=== PATIENT | male | born 1985 | race Caucasian/White ===

== ENCOUNTER 2016-06-19 10:06 | Emergency (ER) | payer SELFPAY ==
[~2016-06-19] VITALS: Ht 182.9 cm; Wt 125.0 kg
[2016-06-19 10:07] VITALS: BP 163/88; PULSE 75; RESP 18; O2SAT 96
--- NOTE | 2016-06-19 11:03 | ED.REPORT ---
HPI-Dizziness / Weakness Date of Service Jun 19, 2016 ED Provider: Jose Espinoza MD Pt is a 30 y/o male w/ a hx of anxiety presenting to the ED c/o dizziness and lightheadedness onset last week. Last week he was having intermittent episodes every 15 minutes of fast palpitations and lightheadedness which were thought to be caused by anxiety. He was seen at [facility] and subsequently prescribed anxiety medication and since then he has been feeling constant lightheadedness with hot flashes. He reports that his blood sugar and liver enzymes were mildly elevated during that visit. He has also noted left sided chest pain which resolves after a few seconds. He has not experienced any episodes of near-syncope. Family history: CAD in both grandparents with MIs around age 50. Diabetes on mother's side. Nursing Notes Stated Complaint: DIZZY/LIGHT HEADED Chief Complaint: Neuro Symptoms/ Deficits Nursing Notes Reviewed: Yes (OpenStudy, meds not reconciled) Allergies: Coded Allergies: No Known Allergies (Unverified , 06/19/16) General Time Seen by MD: 11:00 Chief Complaint Dizzy, Lightheaded Hx Obtained From: Patient Arrived By: Walk-in Onset Occurred: 1 week ago Symptom Duration: Since onset Location: : Chest Quality: Painful Severity: Current: No pain currently Severity: Maximum: Mild Recent Healthcare: Recent doctor visit Similar Sx Previous: No Past Medical History Past Medical History Asthma Episodic anxiety GERD Past Surgical History Denies Family History CAD in both grandparents, [place] around age 50 Diabetes on mother's side Smoking History Current Every Day Smoker Social History Alcohol Use: "Social" Ambulatory Status Independent Review of Systems Constitutional: Denies: Chills, Fever Cardiovascular: Reports: Palpitations GI: Denies: Abdominal pain, Diarrhea, Nausea, Vomiting Neurologic: Reports: Dizziness, Lightheaded, Denies: Syncope Complete sys rev & neg: except as marked. Physical Exam Initial Vital Signs Vital Signs (First) Date Time Temp Pulse Resp B/P Pulse Ox O2 Delivery O2 Flow Rate FiO2 06/19/16 10:07 36.7 75 18 163/88 96 Room Air Initial VS: Reviewed, Vital signs normal ENT: Mucous membranes moist, Conjunctiva normal, No scleral icterus Neck: Supple, Full range of motion Abdomen / GI: Soft, Non-tender, No guarding, No rebound, No distention Back: No CVA tenderness Lymphatic: No lymphadenopathy Extremities: Vascular intact, Neuro intact, No swelling, No tenderness Skin: Warm, Dry, No cyanosis Psychiatric: Mood/affect normal, Behavior normal, Normal thought content General/Constitutional: Awake, Alert, No acute distress, Well appearing, Well hydrated, Well nourished, Cooperative, Not toxic appearing Appearance / Presentation: Positive: Obese Head / Eyes: Atraumatic, Normocephalic, PERRL, EOMI, No nystagmus, No periorbital redness, No periorbital swelling, No photophobia Respiratory / Chest: Atraumatic, Breath sounds NL, Breath sounds = bilat, No respiratory distress, No rales, No rhonchi, No wheezing, No retractions, No stridor, No chest tenderness, No chest wall deformity, No crepitus Cardiovascular: Heart rate NL, Regular rhythm, Heart sounds NL, No gallop, No murmurs, No rubs, Cap refill not delayed, Peripheral circulation NL Neurologic: Oriented X3, Speech NL, No motor deficits, No sensory deficits, CN II - XII intact, Cerebellar NL, Memory NL Interpretation & Diagnostics Interpretation & Diagnostics: REcords obtained from [facility] ED visit anywhere 2016: EKG normal at that visit, today's EKG is unchanged, blood work was obtained at that visit revealing a normal CBC, CMP was normal except AST just over the top limit at 70, therefore not finding an occasional repeat laboratory testing today. ECG Interpretation ECG Interpretation: Sinus rhythm rate 68 Time: 11:28 Interpreted by: ED physician Normal ECG Interpretation: Normal rate, Normal sinus rhythm, No acute ischemic changes, Normal QRS, Normal axis, Normal intervals, Adequate tracing Re-Eval/Medical Decision Med Decision/Clinical Course This is a 30-year-old male presents with nonspecific dizziness, we just feels fuzzy. He had no syncope or near syncope, no chest pain, no shortness of breath no diaphoresis. He did have trace palpitations a week ago, anxiety, and was seen at [facility]. he had lab tests, EKG, and was ultimately started on Citalopram just a few days ago. His felt fuzzy ever since, it is little bit more severe today while at work. 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 His had no fever, no cough no infectious symptoms, no infectious symptoms of GI bleeding, and no other specific complaints. He has normal vitals. He is not orthostatic. He has no nystagmus or overt findings of vertigo, and does not describe vertiginous sounding symptoms. He has no clinical history or exam findings of an infectious etiology. He has just had a laboratory evaluation-so I obtained records from that ED visit , his labs are normal with exception of an AST of 70 which is nonspecific. An EKG was repeated here and was normal. However I am not finding clinical signs to indicate repeat laboratory testing is likely be beneficial. Given his symptoms started after starting this new medication, and it is a known side effect of the medication, and his physical exam and history do not bleed or direct any red flags for an alternate or more dangerous etiology, I am highly suspicious that his symptoms may be medication induced. The plan at this point is to stop the new medication. Given he is only been on it for a few days, the taper is not required. She was happy and comfortable with this plan. Routine precautions reviewed. Patient is discharged in stable condition. Source of Hx: Old records Re-Evaluation/Progress : Time of Eval: 12:48 Re-Evaluation/Progress Note: Pt rechecked. Discussed today's findings along with evaluation of prior records. Informed pt of plan for treatment. Pt understands and agrees with plan for treatment. F/U and RTER warnings given. All questions addressed. Counseled Regarding: Diagnosis, Need for follow-up, When/why to return to ED Patient Discharge & Departure Impression: Primary Impression: Adverse effects of medication Encounter type: initial encounter Qualified Code: T88.7XXA - Unspecified adverse effect of drug or medicament, initial encounter Disposition: Home Discharge Condition All VS Reviewed: Yes Condition: Stable Additional Instructions: 1. I am very suspicious that your dizziness has been worse and caused by the citalopram that you just started a few days ago. Although in general this is a very good medicine for most people, this week of dizziness is a known side effect of this medication. 2. I recommended stopping the medicine entirely at this point. It is completely safe to simply discontinue the medicine directly, given you have only been on it for several days-he did not require a taper off the medication. 3. Make sure you take it easy the next day or 2. Usually takes a few days for the medication of Pena or system, and for symptoms to fully resolve. 4. Activities as tolerated. 5. Make sure you are drinking plenty of liquids. 6. Return if new or worsening symptoms are occurring. 7. If you need a primary care provider in the [place] area, you can follow-up with the [facility] residency clinic Referrals: [facility] Residency [facility] Scribe Attestation Portions of this note were transcribed by Gregory Rodriguez. I, Dr. Espinoza personally performed the history, physical exam and medical decision-making; I reviewed and confirmed the accuracy of the information in the transcribed note. Signed by Kash Corral, 06/19/16 - 1110 Jose Espinoza MD Jun 19, 2016 11:03 GREGORY RODRIGUEZ Jun 19, 2016 11:07
[2016-06-19 11:44] VITALS: BP_SYST 138; BP_SYST 140; BP_DIAS 77; BP_DIAS 84; BP_DIAS 92
[2016-06-19 13:06] VITALS: BP 138/84; PULSE 75; RESP 18; O2SAT 96
== END 2016-06-19 13:06 | disposition home or self-care (01) ==
LOC: SED 10:06
DX: R42 Dizziness and giddiness (principal); R00.2 Palpitations; T43.225A Adverse effect of selective serotonin reuptake inhibitors, initial encounter; X58.XXXA Exposure to other specified factors, initial encounter; Y93.89 Activity, other specified; Y92.9 Unspecified place or not applicable; Y99.8 Other external cause status; J45.909 Unspecified asthma, uncomplicated; F17.200 Nicotine dependence, unspecified, uncomplicated; K21.9 Gastro-esophageal reflux disease without esophagitis

== ENCOUNTER 2016-10-01 13:25 | Emergency (ER) | payer OTHER ==
[~2016-10-01] VITALS: Ht 182.9 cm; Wt 124.5 kg
[2016-10-01 13:29] VITALS: BP 160/83; PULSE 111; RESP 18; O2SAT 98
--- NOTE | 2016-10-01 13:31 | ED.REPORT ---
HPI-Chest Pain Under 40 Date of Service October 01, 2016 ED Provider: Gustavo Leija MD 30 year old male with a history of GERD, anxiety, and asthma, and a family history of heart disease presents to the ER complaining of intermittent piercing chest pain behind his left shoulder blade onset 12:30 today. Episodes of pain occur every several minutes. For the past four days he has experienced similar pain after eating. He states that he has been seen for heart "fluttering " that has been previously attributed to anxiety. Patient denies history of cardiac disease. Nursing Notes Stated Complaint: CHEST PAIN Chief Complaint: Chest Pain Nursing Notes Reviewed: Yes Allergies: Coded Allergies: No Known Allergies (Unverified , 06/19/16) General Time Seen by MD: 13:31 Chief Complaint Chest pain Hx Obtained From: Patient Arrived By: Walk-in Sudden in Onset?: No Onset Occurred: 1 - 4 hours ago Symptom Duration: Intermittent Location: : Chest left Quality: Sharp Radiation: : Back Severity: Current: Moderate Severity: Maximum: Moderate Associated with: Denies: Shortness of breath Pertinent Negative: Pt denies other symptoms Context Related History: Denies: Congestive heart failure Similar Sx Previous: No Past Medical History Past Medical History Asthma Episodic anxiety GERD Denies: Congestive heart failure, Coronary artery disease, Hypertension Denies: Atrial fibrillation Past Surgical History Denies Family History CAD in both grandparents, [place] around age 50 Diabetes on mother's side Smoking History Current Every Day Smoker Social History Alcohol Use: "Social" Ambulatory Status Independent Review of Systems Constitutional: Denies: Chills, Fever Respiratory: Denies: Non-productive cough, Shortness of breath Cardiovascular: Reports: Chest pain, Denies: Palpitations GI: Denies: Nausea, Vomiting Musculoskeletal: Reports: Back pain, Denies: Extremity pain Skin: Denies Diaphoresis Complete sys rev & neg: except as marked. Physical Exam Initial Vital Signs Vital Signs (First) Date Time Temp Pulse Resp B/P Pulse Ox O2 Delivery O2 Flow Rate FiO2 10/01/16 13:29 36.6 111 18 160/83 98 Room Air Initial VS: Reviewed Head / Eyes: Atraumatic, Normocephalic Neck: Supple, Non-tender, Full range of motion Abdomen / GI: Soft, Non-tender, No guarding, No rebound, No distention Extremities: Vascular intact, Neuro intact, No swelling, No tenderness Skin: Warm, Dry, No cyanosis Neurologic: Alert, Oriented, Nonfocal General/Constitutional: Awake, Alert, Well developed, Well nourished Respiratory / Chest: Breath sounds NL, Breath sounds = bilat, No respiratory distress, No rales, No rhonchi, No wheezing, No chest tenderness Cardiovascular: Heart rate NL, Regular rhythm, Heart sounds NL, No murmurs, Peripheral circulation NL, Pulses = bilaterally, No gross BP differential Interpretation & Diagnostics Lab Results Interpretation Result Diagram: 10/01/16 1340 10/01/16 1340 Test 10/01/16 13:40 White Blood Count 8.6th/mm3 (3.8-10.1) Red Blood Count 5.25mil/mm3 (4.40-5.80) Hemoglobin 15.7g/dL (13.8-17.2) Hematocrit 45.5% (41.0-50.0) Mean Corpuscular Volume 86.7fL (81-100) Mean Corpuscular Hemoglobin 29.9pg (27.0-35.0) Mean Corpuscular Hemoglobin Concent 34.5% (32.0-37.0) Red Cell Distribution Width 12.4% (12.3-15.4) Platelet Count 241bil/L (150-400) Neutrophils (%) (Auto) 65.1% (40-74) Lymphocytes (%) (Auto) 24.6% (14-46) Monocytes (%) (Auto) 7.8% (4-12) Eosinophils (%) (Auto) 1.9% (0-5) Basophils (%) (Auto) 0.4% (0-3) D-Dimer < 0.50mg/L FEU (<0.50) Sodium Level 137mEq/L (134-144) Potassium Level 4.2mEq/L (3.5-5.2) Chloride Level 99mEq/L (97-108) Carbon Dioxide Level 24mmol/L (18-29) Blood Urea Nitrogen 13mg/dL (6-20) Creatinine 0.69mg/dL (0.76-1.27) Estimat Glomerular Filtration Rate 144mL/min (>59) Glucose Level 115mg/dL (60-99) Calcium Level 9.9mg/dL (8.5-10.1) Magnesium Level 1.9mg/dL (1.6-2.6) Total Bilirubin 0.2mg/dL (0.0-1.2) Aspartate Amino Transf (AST/SGOT) 33U/L (0-50) Alanine Aminotransferase (ALT/SGPT) 75U/L (0-44) Alkaline Phosphatase 68U/L (25-150) Troponin T < 0.010ug/L (0.0-0.011) Total Protein 7.5g/dL (6.4-8.4) Albumin 4.6g/dL (3.4-5.0) Hold Alcantar Top Tube Received (Received) ECG Interpretation ECG Interpretation: Sinus tachycardia, rate 106 Time: 13:50 Interpreted by: ED physician X-Ray Chest Interpretation Chest Xray Interpretation: IMPRESSION: Negative chest. No acute cardiopulmonary process is evident. Dictated by: Hitesh Wade M.D. on 10/01/2016 at 13:03 Approved by: Hitesh Wade M.D. on 10/01/2016 at 13:03 View: Portable, 1 view Interpretation / Wet Read by: Interpret - Radiologist Re-Eval/Medical Decision Med Decision/Clinical Course 30-year-old male long history of anxiety, GERD and chest pain with negative workups presenting with chest pain started yesterday. Intermittent. No EKG changes. Troponins negative. D-dimer negative. Chest x-ray clear. Non-reproducible. Likely anxiety. Patient declined anxiety medications. Discharged home with plan to follow up with primary doctor. Return precautions given. Source of Hx: Old records Re-Evaluation/Progress : Time of Eval: 14:55 Re-Evaluation/Progress Note: Discussed lab and imaging results and plan to discharge. Patient is amenable to the plan. Return precautions given. All other questions addressed. Counseled Regarding: Diagnosis, Lab results, Need for follow-up, When/why to return to ED Discharge & Departure Primary Impression: Non-cardiac chest pain Additional Impression: Anxiety Disposition: Home Discharge Condition All VS Reviewed: Yes Condition: Stable Patient Instructions: Chest Pain (ED) Additional Instructions: Your workup today is reassuring. Your labs and chest x-ray do not indicate any dangerous cause for your symptoms at this time. Follow-up with your primary care provider in 1-2 days. Return to the ER if you develop new or worsening chest pain, radiation of pain into your arms/shoulders/neck/back, shortness of breath, cough, profuse sweating , nausea, vomiting, or any other worsening or concerning symptoms. Referrals: [facility] (PCP) Scribe Attestation Portions of this note were transcribed by Ang Rudolph. I, Dr. Leija, personally performed the history, physical exam and medical decision-making; I reviewed and confirmed the accuracy of the information in the transcribed note. Signed by: Kash Lombardi, 10/01/2016 at 14:53 Gustavo Leija MD October 01, 2016 13:31 ANG RUDOLPH October 01, 2016 13:37
[2016-10-01 13:49] LABS: BASOPHILS % (AUTO) 0.4 % (0-3); EOSINOPHILS % (AUTO) 1.9 % (0-5); MONOCYTES % (AUTO) 7.8 % (4-12); Mean Corpuscular Hemoglobin 29.9 pg (27.0-35.0); Mean Corpuscular Volume 86.7 fL (81-100); NEUTROPHILS % (AUTO) 65.1 % (40-74); Platelet Count 241 bil/L (150-400)
--- NOTE | 2016-10-01 14:05 | DRSVH ---
PROCEDURE: X-RAY CHEST ONE VIEW, PORTABLE ([id number]) INDICATIONS: chest pain TECHNIQUE: One view of the chest was acquired. COMPARISON: None. FINDINGS: Surgical changes and devices: None. Lungs and pleura: No pleural effusions or pneumothorax. Lungs are clear. Mediastinum: Mediastinal contours appear normal. Heart size is normal. Bones and chest wall: No suspicious bony lesions. Overlying soft tissues appear unremarkable. IMPRESSION: Negative chest. No acute cardiopulmonary process is evident. Dictated by: Hitesh Wade M.D. on 10/01/2016 at 13:03 Approved by: Hitesh Wade M.D. on 10/01/2016 at 13:03
[2016-10-01 14:14] LABS: TROPONIN T < 0.010 ug/L (0.0-0.011)
[2016-10-01 14:24] LABS: Magnesium 1.9 mg/dL (1.6-2.6)
[2016-10-01 14:59] VITALS: BP 120/68; PULSE 92; RESP 21; O2SAT 94
== END 2016-10-01 14:48 | disposition home or self-care (01) ==
LOC: SED 13:25
DX: R07.89 Other chest pain (principal); F41.9 Anxiety disorder, unspecified; K21.9 Gastro-esophageal reflux disease without esophagitis; J45.909 Unspecified asthma, uncomplicated; F17.210 Nicotine dependence, cigarettes, uncomplicated